=== PATIENT | male | born 1975 | race Caucasian/White ===

== ENCOUNTER → 2023-07-16 07:43 | Outpatient (CLI) | payer OTHER, SELFPAY ==
--- NOTE | 2023-07-16 07:45 | DI.NM.S_ITS ---
PROCEDURE: NM EXERCISE TREADMILL NON NUC COMPARISON: None. INDICATIONS: Paroxysmal atrial fibrillation FINDINGS: The patient exercised for 13 minutes and 29 seconds reaching 101% of maximum predicted heart rate. 14.8 METs, LAURA -22%. Appropriate BP response to exercise. No diagnostic ST changes and no angina during exercise or recovery. Occasional PVCs during the study. IMPRESSION: Low risk, normal treadmill ECG only stress test with good exercise tolerance (14.8METs, LAURA -22%). Dictated by: Yasmine Sigala MD on 07/16/2023 at 17:06 Approved by: Yasmine Sigala MD on 07/16/2023 at 17:09
== END ==
LOC: RAD 07:44
PROVIDERS: Referring Provider Internal Medicine Cardiovascular Disease; Visit Provider Internal Medicine Cardiovascular Disease
DX: I48.0 Paroxysmal atrial fibrillation (principal)
CPT/HCPCS: 93017